=== PATIENT | female | born 1960 | race Caucasian/White ===

== ENCOUNTER → 2018-10-23 | Outpatient (CLI) | payer OTHER ==
[~2018-10-23] MED LIST: CARTIA XT180 MG PO; CARTIA XT240 MG PO; CIPRO500 MG PO; CLINDAMYCIN HC300 MG PO; Domperidone PO; FUROSEMIDE40 MG PO; LIOTHYRONINE SO5 MCG PO; LOSARTAN POTASS25 MG PO; MACROBID 100MG100 MG PO; METFORMIN HCL500 MG PO; OZEMPIC SQ; PANTOPRAZOLE SO40 MG PO; PHENAZOPYRIDINE PO; SUCRALFATE1 GM PO; VENLAFAXINE H37.5 M2 PO; VITAMIN D-32000 UNIT PO; Z.0.DOMPERIDONE1 GM PO; Z.0.SERTRALINE HCL25 PO; Z.0.TOPROL XL25 MG PO; Z.1.LEVOTHYROXINE100 PO; [UNRECOGNIZED DRUG - OTHER] PO; atrovastatin PO
--- NOTE | 2018-10-23 17:12 | Diagnostic Imaging Report ---
Abdominal ultrasound. History: Abdominal and back pain. Comparison: None available. Discussion: Transverse and longitudinal images of the abdomen were obtained demonstrating a liver of normal size and mildly increased echogenicity measuring 13.5 cm in length. There is no focal hepatic abnormality. The portal vein is patent with hepatopetal flow and is within normal limits measuring 10 mm in diameter. The biliary tree is within normal limits with the common bile duct measuring 3 mm in diameter. The gallbladder is absent. The kidneys are normal in size and echogenicity bilaterally without evidence of hydronephrosis, stones, or mass. The right kidney measures 9.4 cm and the left kidney measures 10.3 cm in length. The spleen is normal in size and appearance measuring 9.2 cm in length. The pancreatic head and body are visualized and are echogenic but otherwise normal in appearance. The abdominal aorta and IVC are within normal limits. There is no evidence of free fluid. IMPRESSION: 1. Mild fatty infiltration of the liver and pancreas. No visible hepatic or pancreatic abnormality. 2. Status post cholecystectomy. Signed by: Matthew Ortega on 10/23/2018 5:08 PM
== END ==
LOC: US 15:25
PROVIDERS: ATTEND Internal Medicine Gastroenterology
DX: K85.90 Acute pancreatitis without necrosis or infection, unspecified (principal)
CPT/HCPCS: 76700

== ENCOUNTER → 2018-10-25 | Day surgery (SDC) | payer OTHER ==
[~2018-10-25] MED LIST changes: +ACETAMINOPHEN 1000 MG/100 ML 100 ML IV ONE; +DONNATAL/LIDOCAINE/MAALOX 30 ML SUSP PO ONE; +FENTANYL CITRATE/PF 100MCG/2 ML INJ ONE; +HYOSCYAMINE 0.125 MG TAB ONE; +LIDOCAINE HCL 2% LOCAL INJ 5 ML SDV VIAL INJ ONE; +MIDAZOLAM HCL 2 MG/2 ML VIAL ONE; +PROPOFOL IV EMULSION 10 MG/ML 20 ML VIAL ONE; +PROPOFOL IV EMULSION 10 MG/ML 50 ML VIAL ONE
--- OUTSIDE RECORDS SUMMARY | 2018-10-25 14:55 | XMS REPORT ---
[facility] Address Unknown Phone Unavailable Care Team Providers Care Pen Tender Name Role Phone MARTHA SILVER Unavailable Unavailable Problems This patient has no known problems. Allergies, Adverse Reactions, Alerts This patient has no known allergies or adverse reactions. Medications This patient has no known medications. Results Test Description Test Time Test Comments Text Results Atomic Results Result Comments US ABDOMEN COMPLETE 2018-10-23 17:06:00 [place] [address] Patient Name: CHIP CASTRO MR #: [id number] : 1960 Age/Sex: 58/F Req #: [id number] Adm Physician: Ordered by: MARTHA SILVER MD Report #: [id number] Location: US Room/Bed: Procedure: [id number] US/US ABDOMEN COMPLETE Exam Date: 10/23/18 Exam Time: 1557 REPORT STATUS: Signed Abdominal ultrasound. History: Abdominal and back pain. Comparison: None available. Discussion: Transverse and longitudinal images of the abdomen were obtained demonstrating a liver of normal size and mildly increased echogenicity measuring 13.5 cm in length. There is no focal hepatic abnormality. The portal vein is patent with hepatopetal flow and is within normal limits measuring 10 mm in diameter. The biliary tree is within normal limits with the common bile duct measuring 3 mm in diameter. The gallbladder is absent. The kidneys are normal in size and echogenicity bilaterally without evidence of hydronephrosis, stones, or mass. The right kidney measures 9.4 cm and the left kidney measures 10.3 cm in length. The spleen is normal in size and appearance measuring 9.2 cm in length. The pancreatic head and body are visualized and are echogenic but otherwise normal in appearance. The abdominal aorta and IVC are within normal limits. There is no evidence of free fluid. IMPRESSION: 1. Mild fatty infiltration of the liver and pancreas. No visible hepatic or pancreatic abnormality. 2. Status post cholecystectomy. Signed by: Ronny Ortega on 10/23/2018 5:08 PM Dictated By: RONNY ORTEGA MD 07 Transcribed By: GALINDO on 10/23/181707 COPY TO: MARTHA SILVER MD
--- NOTE | 2018-10-25 19:50 | Operative Report ---
DATE OF PROCEDURE: 10/25/2018 SURGEON: Ector Brothers MD PROCEDURES: EGD with biopsies and colonoscopy with polypectomy and biopsies. INDICATIONS FOR EGD: Upper abdominal pain, bloating. INDICATIONS FOR COLONOSCOPY: Surveillance colonoscopy, personal history of colon polyps, diarrhea. MEDICATIONS: The patient was done under MAC, please see anesthesiologist's note. PROCEDURE IN DETAIL: With the patient in the left lateral decubitus position, a flexible fiberoptic Olympus gastroscope was introduced into the esophagus under direct visualization without any difficulty. There was some patchy erythema noted in distal esophagus. Minute tongues of velvety red mucosa were noted to extend proximally from the GE junction and biopsies were obtained to rule out Hutton's. The scope was then advanced with ease into the stomach. Mucosa overlying the antrum and the body revealed some patchy erythema and low-grade to moderate edema, and biopsies were obtained and sent to stain for H. pylori. The pylorus was of normal contour and shape, it was intubated with ease and the scope was advanced all the way to the second portion of the duodenum. Biopsies were obtained from the second portion and duodenal bulb to rule out sprue. The scope was then withdrawn back into the stomach and retroflexed. The fundus appeared to be within normal limits. Also, an intact Vince fundoplication was noted. The scope was then straightened out, it was subsequently withdrawn, and the patient tolerated the procedure well. IMPRESSION: 1. Distal esophagitis, mild. 2. Rule out Hutton esophagus. 3. Intact Vince fundoplication. 4. Gastritis, biopsied, biopsies sent to stain for H. pylori. 5. Rule out sprue. PLAN: Follow up histology. Increase Protonix to 40 mg one p.o. before meals b.i.d. The patient was then turned around and after adequate lubrication of the anal canal, a flexible fiberoptic Olympus colonoscope was inserted into the rectum with ease and advanced all the way to the cecum. The scope was then withdrawn slowly. Mucosa overlying the cecum appeared to be within normal limits. The ileocecal valve was intubated and the scope was advanced into the terminal ileum. Biopsies were obtained. The scope was then withdrawn back into the colon. It was then withdrawn slowly and mucosa overlying the ascending and transverse other than for some scattered diverticular disease appeared to be within normal limits. There were some mild patchy inflammatory changes noted in the left colon, multiple random biopsies were obtained. Diverticulosis was more prominent in the left colon. One polyp was snared and one polyp was hot biopsied from the sigmoid colon. The scope was then retroflexed into the distal rectum. Small internal hemorrhoids were noted, none of which was actively bleeding. The scope was then straightened out and it was subsequently withdrawn after securing an adequate stool specimen that was sent for the appropriate stool studies. The patient tolerated the procedure well. IMPRESSION: 1. Diverticulosis. 2. Mild patchy left-sided colitis. 3. Sigmoid colon polyps x2, one snared and one hot biopsied. 4. Internal hemorrhoids, none actively bleeding. PLAN: Follow up histology. Follow up stool studies. Start Visbiome 1 p.o. b.i.d. and Bentyl 10 mg one p.o. t.i.d. The patient might benefit from a followup colonoscopy in 5 years. Ector Brothers MD [facility] [place] /[id number] cc: Felix Napoles MD
[2018-10-25 19:59] LABS: WBC,FECAL (FECAL LACTOFERRIN) NEGATIVE (NEGATIVE)
[2018-10-26 12:47] LABS: C DIFFICILE TOXIN A&B AMP PROB **POSITIVE** (NEGATIVE)
== END | disposition home or self-care (01) ==
LOC: OR 02:35
PROVIDERS: ATTEND Internal Medicine Gastroenterology
DX: K44.9 Diaphragmatic hernia without obstruction or gangrene (principal); K63.5 Polyp of colon; K85.90 Acute pancreatitis without necrosis or infection, unspecified; K29.70 Gastritis, unspecified, without bleeding; K51.50 Left sided colitis without complications; K20.9 Esophagitis, unspecified; Z98.890 Other specified postprocedural states; K57.30 Diverticulosis of large intestine without perforation or abscess without bleeding; K64.8 Other hemorrhoids; R03.0 Elevated blood-pressure reading, without diagnosis of hypertension; E11.9 Type 2 diabetes mellitus without complications; E78.6 Lipoprotein deficiency; E03.9 Hypothyroidism, unspecified; F41.9 Anxiety disorder, unspecified; Z88.1 Allergy status to other antibiotic agents; Z88.2 Allergy status to sulfonamides; Z88.8 Allergy status to other drugs, medicaments and biological substances; Z01.810 Encounter for preprocedural cardiovascular examination; Z87.891 Personal history of nicotine dependence
CPT/HCPCS: 43239; 45380; 45384; 45385; 83630; 83993; 87045; 87177; 87328; 87493; 93005; J0131; J2001; J2250; J2704 ×2; J3010

== ENCOUNTER 2020-08-13 21:49 | Emergency (ER) | payer OTHER ==
[~2020-08-13] VITALS: Ht 167.6 cm; Wt 77.1 kg
[~2020-08-13 21:49] MED LIST changes: -FENTANYL CITRATE/PF 100MCG/2 ML INJ ONE; -HYOSCYAMINE SULFATE 0.5 MG/ML INJ ONE; -LIDOCAINE HCL 2% LOCAL INJ 5 ML SDV VIAL INJ ONE; -MIDAZOLAM HCL 2 MG/2 ML VIAL ONE; -PANTOPRAZOLE 40 MG 10ML VIAL ONE; -PROPOFOL IV EMULSION 10 MG/ML 20 ML VIAL ONE
[2020-08-13 22:51] VITALS: BP 119/58
== END 2020-08-13 22:51 | disposition home or self-care (01) ==
LOC: FSED 22:04
DX: R14.0 Abdominal distension (gaseous) (principal); R10.13 Epigastric pain; I10 Essential (primary) hypertension; E03.9 Hypothyroidism, unspecified
CPT/HCPCS: 71046; 93005; 99282

== ENCOUNTER → 2020-08-13 | Day surgery (SDC) | payer OTHER ==
[~2020-08-13] MED LIST changes: -ACETAMINOPHEN 1000 MG/100 ML 100 ML IV ONE; +DICYCLOMINE HCL20 MG PO; -DONNATAL/LIDOCAINE/MAALOX 30 ML SUSP PO ONE; -HYOSCYAMINE 0.125 MG TAB ONE; +HYOSCYAMINE SULFATE 0.5 MG/ML INJ ONE; +ONDANSETRON ODT8 MG PO; +PANTOPRAZOLE 40 MG 10ML VIAL ONE; -PROPOFOL IV EMULSION 10 MG/ML 50 ML VIAL ONE
[2020-08-13 14:19] VITALS: BP 134/89
[2020-08-14 11:26] LABS: WBC,FECAL (FECAL LACTOFERRIN) NEGATIVE (NEGATIVE)
[2020-08-14 12:39] LABS: C DIFFICILE TOXIN A&B AMP PROB NEGATIVE (NEGATIVE)
== END | disposition home or self-care (01) ==
LOC: OR 10:14
PROVIDERS: ATTEND Internal Medicine Gastroenterology
DX: K20.90 Esophagitis, unspecified without bleeding (principal); K29.70 Gastritis, unspecified, without bleeding; K31.7 Polyp of stomach and duodenum; K51.50 Left sided colitis without complications; K57.30 Diverticulosis of large intestine without perforation or abscess without bleeding; K62.89 Other specified diseases of anus and rectum; K64.8 Other hemorrhoids; K52.9 Noninfective gastroenteritis and colitis, unspecified; R11.2 Nausea with vomiting, unspecified; I10 Essential (primary) hypertension; F41.9 Anxiety disorder, unspecified; K21.9 Gastro-esophageal reflux disease without esophagitis; Z87.19 Personal history of other diseases of the digestive system; Z68.28 Body mass index [BMI] 28.0-28.9, adult
CPT/HCPCS: 36415; 43239; 45380; 82948; 83630; 83993; 87045; 87177; 87328; 87493; C9113; J1980; J2001; J2250; J2704; J3010; 45378